=== PATIENT | male | born 2000 | race Caucasian/White ===

== ENCOUNTER → 2024-10-01 | Outpatient (CLI) | payer OTHER, SELFPAY ==
--- NOTE | 2024-10-01 08:34 | XR_ITS ---
MRI shoulder, left, without contrast. Date and time: October 01, 2024 0849 hours INDICATIONS: Left shoulder pain 8 years post injury Technique: Multiple axial, sagittal and coronal sections of the shoulder have been obtained. Siemens high-resolution 1.5 Melany MRI scanner is utilized. Axial fat-suppressed sections, TR 2350, TE 18 T2-weighted coronal fat-saturated images, TR 3500, TE 7100 T1-weighted coronal images, TR 500, TE 15 T2-weighted sagittal fat-saturated images, TR 3500, TE 57 T1-weighted sagittal sections, TR 504, TE 13. Findings: Supraspinatus tendon insertion is intact. Infraspinatus tendon insertion is intact. Subscapularis insertion is intact. Subscapularis bursa is not seen. Long head of the biceps is in the bicipital groove. No definite tear of the biceps superior labral anchor is seen. Retraction of the musculotendinous junction of the rotator cuff is not seen . Tendinosis pattern is mild. Distance between the acromium and humeral head is 5.4 mm Atrophy of the supraspinatus muscle is mild . Atrophy of the infraspinatus muscle is not seen. Sagittal sections demonstrate a horizontal acromion. Acromioclavicular joint demonstrates mild osteoarthritis . Osacromiale is not identified. Fraying of the anterior labral margins. Bony glenoid fossa on the sagittal sections does not demonstrate osseous defect. Occult fracture or area of avascular necrosis is not seen. Acromioclavicular joint separation is not visible. Defect in the posterolateral margin of the humeral head is not seen Impression: Rotator cuff intact Fraying of the anterior labral margins
== END | disposition home or self-care (01) ==
PROVIDERS: PCP Nurse Practitioner Primary Care; Referring Provider Nurse Practitioner Primary Care; Visit Provider Nurse Practitioner Primary Care
DX: M25.812 Other specified joint disorders, left shoulder (principal)
CPT/HCPCS: 73221

== ENCOUNTER → 2024-10-06 | Outpatient (CLI) | payer OTHER, SELFPAY ==
--- NOTE | 2024-10-06 11:54 | XR_ITS ---
Examination: Shoulder,left, 4 views Technique: Shoulder AP internal rotation, AP external rotation, Y view shoulder, axial shoulder 4 views Exam date and time :October 06, 1999 2512 noon INDICATIONS: Left shoulder pain beginning 2015. FINDINGS: Mild narrowing glenohumeral joint No fracture or shoulder dislocation Mild calcification No dislocation IMPRESSION: Mild narrowing glenohumeral joint Mild calcific tendinitis
== END | disposition home or self-care (01) ==
PROVIDERS: PCP Nurse Practitioner Primary Care; Referring Provider Nurse Practitioner Primary Care; Visit Provider Nurse Practitioner Primary Care
DX: M75.32 Calcific tendinitis of left shoulder (principal); M25.812 Other specified joint disorders, left shoulder
CPT/HCPCS: 73030